=== PATIENT | female | born 1995 | race Two or more races ===

== ENCOUNTER 2024-01-09 00:39 | Emergency (ER) | payer MEDICAID, OTHER ==
[~2024-01-09] VITALS: Ht 167.6 cm; Wt 77.0 kg
[~2024-01-09 00:39] MED LIST: NO HOME MEDS
[2024-01-09] MEDS: ibuprofen tablet 400 MG TABLET PO ONE (02:40)
[2024-01-09] MEDS: ondansetron 4mg rapidly disintigrating tab PO ONE (02:41)
[2024-01-09] MEDS: acetaminophen 325mg tablet PO ONE (02:41)
[2024-01-09 02:59] LABS: STREP A SCREEN NEGATIVE (Neg)
[2024-01-09 04:07] LABS: BILIRUBIN,URINE SMALL (Neg); CLARITY,URINE CLOUDY (Clear); COLOR,URINE AMBER (Yellow); GLUCOSE, URINE NEGATIVE (Neg); KETONES,URINE >=80 mg/dl (Neg); LEUKOCYTE ESTERASE ,URINE TRACE (Neg); NITRITES, URINE NEGATIVE (Neg); OCCULT BLOOD,URINE LARGE (Neg); PH,URINE 6.5 (4.8-8.0); PROTEIN,URINE 30 mg/dl (Neg); UROBILINOGEN,URINE 0.2 E.U/dL (0.2-1.0)
[2024-01-09 04:10] LABS: URINE HCG NEGATIVE (NEG)
[2024-01-09 04:23] LABS: UA COLLECTION TYPE CLN CATCH MIDSTREAM
[2024-01-09 04:24] LABS: SQUAMOUS EPITHELIAL CELL,UR MANY /LPF (FEW)
[2024-01-09 04:26] LABS: BACTERIA,URINE 2+ /HPF (Neg); RBC,URINE TNTC /HPF (0-2)
[2024-01-09 04:41] VITALS: BP 104/60; PULSE 92; RESP 16; TEMP 98.5; O2SAT 98
== END 2024-01-09 04:40 | disposition home or self-care (01) ==
LOC: ER 00:40
DX: B34.9 Viral infection, unspecified (principal); Z20.822 Contact with and (suspected) exposure to COVID-19; R11.0 Nausea; Z79.899 Other long term (current) drug therapy; Z90.49 Acquired absence of other specified parts of digestive tract
CPT/HCPCS: 36415; 81001; 81025; 87081; 87502; 87503; 87811; 87880; 99285

== ENCOUNTER 2024-04-18 22:43 | Emergency (ER) | payer MEDICAID ==
[~2024-04-18] VITALS: Ht 167.6 cm; Wt 86.0 kg
[2024-04-18 22:51] VITALS: BP 121/78
[2024-04-19 00:48] LABS: STREP A SCREEN NEGATIVE (Neg)
[2024-04-19] MEDS: ibuprofen tablet 400 MG TABLET PO ONE (00:52)
[2024-04-19] MEDS: acetaminophen 325mg tablet PO ONE (00:53)
[2024-04-19 02:16] VITALS: PULSE 65; RESP 18; TEMP 99; O2SAT 98
== END 2024-04-19 02:19 | disposition home or self-care (01) ==
LOC: ER 22:43
DX: J02.9 Acute pharyngitis, unspecified (principal); R50.9 Fever, unspecified; Z20.822 Contact with and (suspected) exposure to COVID-19; Z90.49 Acquired absence of other specified parts of digestive tract
CPT/HCPCS: 36415; 87081; 87811; 87880; 99283